=== PATIENT | female | born 1955 | race Caucasian/White ===

== ENCOUNTER → 2016-04-12 | Outpatient (CLI) | payer MEDICARE ==
[~2016-04-12] MED LIST: ATENOLOL50 M1 PO; ATORVASTATIN CA20 MG PO; EFFEXOR XR150 MG PO; GABAPENTIN100 M1 PO; HYDROCHLOROTHIA25 M1 PO; HYDROCODONE-APA1 TA1 PO; HYDROXYCHLOROQ200 M1 PO; LASIX 40MG. TAB40 MG PO; LEVAQUIN 750 M750 MG PO; LORTAB 5/500 501 TAB PO; LYRICA75 MG PO; MOBIC15 MG PO; ORABASE 20% MM; PERCOCET 5/3251 EACH PO; PLAQUENIL200 MG PO; PREDNISONE 10MG10 MG PO; PROTONIX 40MG T40 MG PO; TAMIFLU 75MG CA75 MG PO; TRAMADOL 50MG T1 PAK PO
[2016-04-12 12:00] LABS: LYMPH # 1.3 K/mm3 (0.7-4.5); LYMPH % 18.3 % (10-50.0)
[2016-04-12 13:35] LABS: BILIRUBIN, INDIRECT 0.19 mg/dL (0-0.9)
[2016-04-12 13:37] LABS: GFR (ESTIMATED) 102 ML/MIN (59-)
== END ==
LOC: LAB 11:46
PROVIDERS: Internal Medicine
DX: M06.09 Rheumatoid arthritis without rheumatoid factor, multiple sites (principal); Z79.01 Long term (current) use of anticoagulants; Z51.81 Encounter for therapeutic drug level monitoring

== ENCOUNTER → 2016-09-01 | Outpatient (CLI) | payer MEDICARE ==
[2016-09-01 09:06] LABS: LYMPH # 1.4 K/mm3 (0.7-4.5); LYMPH % 32.4 % (10-50.0)
[2016-09-01 09:23] LABS: HEMOGLOBIN 11.2 g/dL (12.2-16.2)
[2016-09-01 10:29] LABS: BUN 7 mg/dL (7-18)
[2016-09-01 10:30] LABS: GFR (ESTIMATED) 85 ML/MIN (59-)
== END ==
LOC: LAB 08:31
PROVIDERS: Nurse Practitioner Women's Health
DX: M06.09 Rheumatoid arthritis without rheumatoid factor, multiple sites (principal); M79.7 Fibromyalgia; F41.9 Anxiety disorder, unspecified; M85.80 Other specified disorders of bone density and structure, unspecified site; Z79.899 Other long term (current) drug therapy

== ENCOUNTER → 2017-01-03 | Outpatient (CLI) | payer MEDICARE ==
[~2017-01-03] MED LIST changes: +AMBIEN 5MG TAB5 MG PO; +XANAX 0.5MG TA0.5 MG PO; +XELJANZ XR11 MG PO
[2017-01-03 11:43] LABS: HEMOGLOBIN 11.5 g/dL (12.2-16.2); LYMPH % 18.4 % (10-50.0)
[2017-01-03 15:37] LABS: BUN 13 mg/dL (7-18)
[2017-01-03 16:02] LABS: GFR (ESTIMATED) 102 ML/MIN (59-)
== END ==
LOC: LAB 12-22 11:39
PROVIDERS: Nurse Practitioner Women's Health
DX: M06.09 Rheumatoid arthritis without rheumatoid factor, multiple sites (principal); M79.7 Fibromyalgia; M85.80 Other specified disorders of bone density and structure, unspecified site; F41.9 Anxiety disorder, unspecified; Z79.899 Other long term (current) drug therapy

== ENCOUNTER 2017-01-12 17:43 | Emergency (ER) | payer MEDICARE ==
[~2017-01-12] VITALS: Ht 160 cm; Wt 113.4 kg
[~2017-01-12 17:43] MED LIST changes: -AMBIEN 5MG TAB5 MG PO; -XANAX 0.5MG TA0.5 MG PO; -XELJANZ XR11 MG PO
[2017-01-12] MEDS ORDERED: XELJANZ XR11 MG PO (18:08)
[2017-01-12] MEDS ORDERED: AMBIEN 5MG TAB5 MG PO (18:08)
[2017-01-12] MEDS ORDERED: XANAX 0.5MG TA0.5 MG PO (18:08)
--- NOTE | 2017-01-12 18:44 | Urgent Treatment Center Report ---
History of Present Issue Date/Time Seen by Provider 01/12/171809 Visit Reason Pt arrived:Walked Presenting Problem:PT STATES SHE STEPPED DOWN ON THE STEP AT HOME AND FELT A POP IN HER LEFT FOOT. PT HAS FX THIS FOOT ABOUT 1 YEAR AGO. PT ARRIVED WITH A WALKING BOOT ON HER FOOT. 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 Location if Accident: Onset of symptoms date/time:/ or onset unknown for:MEDICAL HX UNKNOWN Have you (or family members/close friends) recently traveled outside the [place]? N If Yes, where/when: Have you had exposure to infectious disease within the past month? TB? Other? Specify: c/o left foot pain, primarily 5th metatarsal. Stepped "wrong" off a step at home today and felt "a pop". Immediate pain since. hx of fracture to "4th or 5th metatarsal" last year. Still had walking boot at home and "that is the only way I was able to improve this pain". Little to no improvement with tylenol. Denies ankle or leg pain. "just right here" as pt points to left 5th metatarsal. Denies N/T. Source patient Exam Limitations no limitations ALLERGIES Coded Allergies: Penicillins (07/11/16) aspirin (07/11/16) codeine (07/11/16) cyclobenzaprine (From FLEXERIL) (07/11/16) pentazocine (From TALWIN) (07/11/16) Uncoded Allergies: DARVOCET (Mild, 07/23/12) Home Medications Reported Medications Prednisone (Prednisone 10MG) 10 MG PO DAILY ATORVASTATIN CALCIUM (ATORVASTATIN 20MG) 20 MG PO QHS Furosemide (Lasix 40MG) 40 MG PO DAILYP PRN FLUID Atenolol 50 MG PO #30 Tofacitinib Citrate (Xeljanz XR) 11 MG PO DAILY Alprazolam (Xanax 0.5MG) 0.5 MG PO BID Zolpidem Tartrate (Ambien 5MG) 5 MG PO QHS History Medical History General CAD? No Angina: No CT: Yes Hypertension? Yes Hyperlipidemia? Yes CHF? No DVT? No PE? No COPD? No Asthma? Yes Anemia? No GERD? No Gastric ulcers? Yes GI Bleed? Yes Hernia? Yes Thyroid Problems? No Hypothyroidism? No CVA? No Seizures? No Diabetes? No UTI? No Stones? No BPH? No GB Disease: Yes Nephritic Syndrome? No Asplenia? No Hepatitis? No Sickle Cell Disease? No Arthritis? No Migraines? No Cataracts? No Glaucoma? No MRSA? No HIV? No TB? No Anxiety? No Depression? No Cancer? Yes Site: UTERINE Immunization HX DT/Tetanus 1-4 YRS Flu REFUSES Pneumonia REFUSES Surgical Hx Previous Surgery?Y HYSTERECTOMY GALBLADDER GASTRIC BYPASS ULCER TKR ON LEFT BILAT CARPAL TUNNEL R KNEE RECTAL SURGERY LEFT KNEE BILATERAL CATERACTS Family History Family HX Diabetes Yes CAD Yes Hypertension Yes Hyperlipidemia Yes Cancer Yes TB Yes Social History Smoking Hx Smoker: Never Smoker Tobacco: No Alcohol Alcohol: No Review of Systems All Other Systems Reviewed and Negative Musculoskeletal see HPI Skin denies change in color, denies lesions, denies lumps Psychiatric/Neurological see HPI Physical Exam Vital Signs Vital Signs Date Time Temp Pulse Resp B/P Pulse O2 O2 Flow FiO2 Ox Delivery Rate 01/12 1851 98.0 84 20 152/84 97 01/12 180 98.0 84 20 152/84 97 General Appearance normal appearance, no apparent distress, wearing walking boot on left foot Respiratory Status No: respiratory distress. Cardiovascular no peripheral edema Peripheral Pulses Pulses normal Yes (DP/PT) Back gait abnormality (limp favoring left) Extremities normal range of motion (left ankle), normal inspection (left foot), limited range of motion (left 4th and 5th digits), tenderness mid left 5th metatarsal Neurologic alert, no motor/sensory deficits, oriented x 3 Skin intact, normal color, warm/dry Medical Decision Making LABS/Meds/Orders Pt receiving controlled substance in ED? No Results/Orders Orders Procedure Date/time Status FOOT-LT-3 VIEWS 01/12 1809 Active XRAY/CT/US XRAY/CT/US XRAY foot (left) XR interpretation by discussed w/radiologist (Dr. Macdonald) Xray Results concern for malunion of old 5th metatarsal fracture with widening due to new injury today. Suggest treating as fracture. 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 report visit to [facility] and xray. Reinjured fracture left 5th metatarsal. Need follow up appointment. Let them know you were previously treated in [place] at [facility] but are needing something closer to home. Patient Instructions DI for Foot Fracture, How To Perform RICE (Rest, Ice, Compress, Elevate), How to Use a Walking Boot Additional Instructions * walking boot any time up * Rest * ice 15-20 mins 3-4 times a day * Elevate as discussed as much as possible to help reduce swelling and therefore , pain * Ibuprofen or NSAID of choice every 6 hours as needed for pain and inflammation. If you need something more, you can take tylenol every 4 hours as needed as long as your primary care provider has told you it is ok to take both. Discharge Counseling Counseled pt/family regarding diagnosis, test results, medications/RX, home care, follow up needs at [phone]
--- NOTE | 2017-01-12 18:44 | Urgent Treatment Center Report ---
History of Present Issue Date/Time Seen by Provider 01/12/171809 Visit Reason Pt arrived:Walked Presenting Problem:PT STATES SHE STEPPED DOWN ON THE STEP AT HOME AND FELT A POP IN HER LEFT FOOT. PT HAS FX THIS FOOT ABOUT 1 YEAR AGO. PT ARRIVED WITH A WALKING BOOT ON HER FOOT. 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 Location if Accident: Onset of symptoms date/time:/ or onset unknown for:MEDICAL HX UNKNOWN Have you (or family members/close friends) recently traveled outside the [place]? N If Yes, where/when: Have you had exposure to infectious disease within the past month? TB? Other? Specify: c/o left foot pain, primarily 5th metatarsal. Stepped "wrong" off a step at home today and felt "a pop". Immediate pain since. hx of fracture to "4th or 5th metatarsal" last year. Still had walking boot at home and "that is the only way I was able to improve this pain". Little to no improvement with tylenol. Denies ankle or leg pain. "just right here" as pt points to left 5th metatarsal. Denies N/T. Source patient Exam Limitations no limitations ALLERGIES Coded Allergies: Penicillins (07/11/16) aspirin (07/11/16) codeine (07/11/16) cyclobenzaprine (From FLEXERIL) (07/11/16) pentazocine (From TALWIN) (07/11/16) Uncoded Allergies: DARVOCET (Mild, 07/23/12) Home Medications Reported Medications Prednisone (Prednisone 10MG) 10 MG PO DAILY ATORVASTATIN CALCIUM (ATORVASTATIN 20MG) 20 MG PO QHS Furosemide (Lasix 40MG) 40 MG PO DAILYP PRN FLUID Atenolol 50 MG PO #30 Tofacitinib Citrate (Xeljanz XR) 11 MG PO DAILY Alprazolam (Xanax 0.5MG) 0.5 MG PO BID Zolpidem Tartrate (Ambien 5MG) 5 MG PO QHS History Medical History General CAD? No Angina: No CA: Yes Hypertension? Yes Hyperlipidemia? Yes CHF? No DVT? No PE? No COPD? No Asthma? Yes Anemia? No GERD? No Gastric ulcers? Yes GI Bleed? Yes Hernia? Yes Thyroid Problems? No Hypothyroidism? No CVA? No Seizures? No Diabetes? No UTI? No Stones? No BPH? No GB Disease: Yes Nephritic Syndrome? No Asplenia? No Hepatitis? No Sickle Cell Disease? No Arthritis? No Migraines? No Cataracts? No Glaucoma? No MRSA? No HIV? No TB? No Anxiety? No Depression? No Cancer? Yes Site: UTERINE Immunization HX DT/Tetanus 1-4 YRS Flu REFUSES Pneumonia REFUSES Surgical Hx Previous Surgery?Y HYSTERECTOMY GALBLADDER GASTRIC BYPASS ULCER TKR ON LEFT BILAT CARPAL TUNNEL R KNEE RECTAL SURGERY LEFT KNEE BILATERAL CATERACTS Family History Family HX Diabetes Yes CAD Yes Hypertension Yes Hyperlipidemia Yes Cancer Yes TB Yes Social History Smoking Hx Smoker: Never Smoker Tobacco: No Alcohol Alcohol: No Review of Systems All Other Systems Reviewed and Negative Musculoskeletal see HPI Skin denies change in color, denies lesions, denies lumps Psychiatric/Neurological see HPI Physical Exam Vital Signs Vital Signs Date Time Temp Pulse Resp B/P Pulse O2 O2 Flow FiO2 Ox Delivery Rate 01/12 1851 98.0 84 20 152/84 97 01/12 180 98.0 84 20 152/84 97 General Appearance normal appearance, no apparent distress, wearing walking boot on left foot Respiratory Status No: respiratory distress. Cardiovascular no peripheral edema Peripheral Pulses Pulses normal Yes (DP/PT) Back gait abnormality (limp favoring left) Extremities normal range of motion (left ankle), normal inspection (left foot), limited range of motion (left 4th and 5th digits), tenderness mid left 5th metatarsal Neurologic alert, no motor/sensory deficits, oriented x 3 Skin intact, normal color, warm/dry Medical Decision Making LABS/Meds/Orders Pt receiving controlled substance in ED? No Results/Orders Orders Procedure Date/time Status FOOT-LT-3 VIEWS 01/12 1809 Active XRAY/CT/US XRAY/CT/US XRAY foot (left) XR interpretation by discussed w/radiologist (Dr. Macdonald) Xray Results concern for malunion of old 5th metatarsal fracture with widening due to new injury today. Suggest treating as fracture. 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 report [facility] and xray. Reinjured fracture left 5th metatarsal. Need follow up appointment. Let them know you were previously treated in [place] at [facility] but are needing something closer to home. Patient Instructions DI for Foot Fracture, How To Perform RICE (Rest, Ice, Compress, Elevate), How to Use a Walking Boot Additional Instructions * walking boot any time up * Rest * ice 15-20 mins 3-4 times a day * Elevate as discussed as much as possible to help reduce swelling and therefore , pain * Ibuprofen or NSAID of choice every 6 hours as needed for pain and inflammation. If you need something more, you can take tylenol every 4 hours as needed as long as your primary care provider has told you it is ok to take both. Discharge Counseling Counseled pt/family regarding diagnosis, test results, medications/RX, home care, follow up needs at [phone]
[2017-01-12 18:51] VITALS: BP 152/84
--- NOTE | 2017-01-13 21:35 | RADIOLOGY REPORT PS360 ---
FOOT-LT-3 VIEWS HISTORY: INJURY ON STEP PTAstep off porch sudden onset, left lateral foot pain. Patient Age: 61 years: Female Ordering Physician: YOSHI SHER APRN TECHNIQUE: 3 views left foot COMPARISON :August 2015 left foot 3 views FINDINGS . Incomplete healing and partial nonunion of a previous noted subtle fracture at the proximal fifth metatarsal metatarsal. . I believe primarily viewing old features but I understand the patient now focally tender here after a new injury. The fracture line is more evident today. Although this may reflect sclerosis at the margins of this nonunion I questioned that re injury here may yield a a potential refracture through this region. Question hairline fracture line continuing medial from this point transversing the proximal fifth metatarsal.. Soft tissue swelling is most evident along the plantar lateral aspect of foot in this region. The other metatarsals seem to be intact. The toes intact. The tarsals appear intact. 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 Majority the findings here appear old .- However I understand his pain here recurred & with suggestion of slight widening at the old fracture line,. Also questionable subtle hairline fracture line extending medial from this point transversing proximal fifth metatarsal on the oblique view.. With history & New onset of pain following injury here,, question/ suspect possible refracture through this old area of nonunion. Orthopedic follow-up required
--- OUTSIDE RECORDS SUMMARY | 2017-01-20 16:11 | External Medical Summary Rpt | CCD ---
Author Author , MAL RESENDEZ Address Unknown Phone [email or web address] Care Team Providers Care Defense Travel Administrator Name Role Phone Jensen Johnson MD, Unavailable Unavailable Jensen Johnson MD Purpose Continuity of Care Document - 07-23-2012 through 2016 Problems Code Diagnosis DOS Provider Status [id number] Asthma [facility] [address] [facility] Allergies, Adverse Reactions, Alerts Type Allergy to substance Drug Allergy Propensity to adverse reactions to drug Adverse Reaction to Substance Substance Reaction Severity DARVOCET Unknown Mild PCN (penicillin) Unknown Mild Aspirin Unknown Mild Codeine Unknown Mild Cyclobenzaprine Unknown Mild Pentazocine Unknown Mild Medications Na ND Rx Da Fi Fi Am Da Di Ph RX Ph St me C No te ll ll ou ys ag ar # ys at rm s nt no ma ic us Or Da si cy ia de te s n re d EF 00 04 1 No FE 00 -2 XO 80 9- Lo R 83 20 ng XR 30 13 er 3 75 Ac ti MG ve CA PS UL E ON 00 04 1 No DA 64 -2 NS 16 9- Lo ET 08 20 ng RO 02 13 er N 5 HC Ac L ti 4 ve MG /2 ML AL ME 51 04 0 No TO 07 -2 OR 90 9- Lo OL 25 20 ng OL 52 13 er 0 TA Ac RT ti RA ve TE 25 MG TA B LE 25 04 0 No VO 02 -2 FL 10 8- Lo OX 13 20 ng AC 28 13 er IN 3 Ac 75 ti 0 ve MG /1 50 ML -D 5W Po 00 04 2 No ta 24 -2 ss 50 8- Lo iu 05 20 ng m 80 13 er Ch 1 lo Ac ri ti de ve 20 ME Q Ta bl e Sa 63 04 1 No li 80 -2 ne 70 8- Lo 10 20 ng Fl 07 13 er us 5 h Ac 10 ti ML ve Sy ri ng e Po 00 04 0 No ta 24 -2 ss 50 8- Lo iu 05 20 ng m 80 13 er Ch 1 lo Ac ri ti de ve 20 ME Q Ta bl e Po 00 04 2 No ta 24 -2 ss 50 8- Lo iu 05 20 ng m 80 13 er Ch 1 lo Ac ri ti de ve 20 ME Q Ta bl e Sa 63 04 1 No li 80 -2 ne 70 8- Lo 10 20 ng Fl 07 13 er us 5 h Ac 10 ti ML ve Sy ri ng e Po 00 04 0 No ta 24 -2 ss 50 8- Lo iu 05 20 ng m 80 13 er Ch 1 lo Ac ri ti de ve 20 ME Q Ta bl e PO 00 04 1 No TA 40 -2 SS 99 8- Lo IU 25 20 ng M 73 13 er CL 9 Ac 20 ti ve ME Q- 0. 45 % NA CL LO 00 04 1 No VE 07 -2 NO 50 8- Lo X 62 20 ng 40 04 13 er 1 MG Ac /0 ti .4 ve ML SY RI NG E HY [address] 30 -2 OX 40 8- Lo YC 29 20 ng HL 60 13 er OR 1 OQ Ac UI ti NE ve 20 0 MG TA B Po 00 04 2 No ta 24 -2 ss 50 8- Lo iu 05 20 ng m 80 13 er Ch 1 lo Ac ri ti de ve 20 ME Q Ta bl e OR 00 04 2 No ED 05 -2 NI 40 8- Lo SO 01 20 ng NE 72 13 er 0 10 Ac ti MG ve TA BL ET Sa 63 04 1 No li 80 -2 ne 70 8- Lo 10 20 ng Fl 07 13 er us 5 h Ac 10 ti ML ve Sy ri ng e MA 00 04 0 No PA 90 -2 P 41 8- Lo 32 98 20 ng 5 26 13 er MG 1 Ac TA ti BL ve ET Po 00 04 0 No ta 24 -2 ss 50 8- Lo iu 05 20 ng m 80 13 er Ch 1 lo Ac ri ti de ve 20 ME Q Ta bl e IP 00 04 1 No RA 48 -2 T- 70 8- Lo AL 20 20 ng BU 10 13 er T 1 0. Ac 5- ti 3( ve 2. 5) MG /3 ML 00 04 2 No AI 12 -2 FE 10 8- Lo NE 63 20 ng SI 81 13 er N 0 DM Ac ti SY ve RU P Vital Signs 08-08-2012 08:00 Name Value Interpretat Reference Comment ion Range Body 98.4 [degF] Temperature BP 92 mm[Hg] Diastolic BP Systolic 165 mm[Hg] Heart 86 /min Rate/Pulse Respiratory 18 /min Rate 08-08-2012 04:00 Name Value Interpretat Reference Comment ion Range Body 99.1 [degF] Temperature BP 96 mm[Hg] Diastolic BP Systolic 165 mm[Hg] Heart 80 /min Rate/Pulse O2% 95 % Respiratory 18 /min Rate 08-06-2012 13:30 Name Value Interpretat Reference Comment ion Range Height 160.02 cm Weight 113.173 kg Measured 08-06-2012 10:24 Name Value Interpretat Reference Comment ion Range Body 101.7 Temperature [degF] BP 62 mm[Hg] Diastolic BP Systolic 140 mm[Hg] Heart 88 /min Rate/Pulse O2% 91 % Respiratory 24 /min Rate Weight 0 [oz_av] Measured 07-23-2012 14:49 Name Value Interpretat Reference Comment ion Range BP 79 mm[Hg] Diastolic BP Systolic 123 mm[Hg] Heart 86 /min Rate/Pulse O2% 100 % Respiratory 20 /min Rate 07-23-2012 14:40 Name Value Interpretat Reference Comment ion Range Body 98.1 [degF] Temperature BP 79 mm[Hg] Diastolic BP Systolic 123 mm[Hg] Heart 86 /min Rate/Pulse O2% 100 % Respiratory 20 /min Rate Results Labs Lab Lab Date Result Refere Interp Status Commen Order Detail nces retati t Range on BASIC METABOLIC PANEL (08-07-2012 06:03) Glucose 99 74-106 complet 013 mg/dL ed Bld-mCn 06:03 c BUN 4 mg/dL 7-18 complet Bld-mCn 013 ed c 06:03 Creat 0.7 0.6-1.0 complet SerPl-m 013 mg/dL ed Cnc 06:03 ESTIMAT 158 50-200 complet ED 013 ML/MIN ed CREATIN 06:03 INE CLEARAN CE GFR 86 59- complet (ESTIMA 013 ML/MIN ed WALTER) 06:03 Sodium 137 136-145 complet SerPl-s 013 mmoL/L ed Cnc 06:03 Potassi 3.5 3.5-5.1 complet um 013 mmoL/L ed SerPl-s 06:03 Cnc Chlorid 103 98-107 complet e 013 mmoL/L ed SerPl-s 06:03 Cnc CO2 28 21.0-32 complet SerPl-s 013 mmoL/L .0 ed Cnc 06:03 Calcium 8.2 8.5-10. complet 013 mg/dL 1 ed SerPl-m 06:03 Cnc CBC with AUTO DIFF (08-07-2012 06:03) WBC # 08-07-2 3.8 4.8-10. complet Bld 013 K/MM3 8 ed Auto 06:03 RBC # 3.75 4.2-5.4 complet Bld 013 M/mm3 ed Auto 06:03 Hgb 11.9 12.2-16 complet Bld-mCn 013 g/dL .2 ed c 06:03 Hct Fr 34.9 % 37.0-47 complet Bld 013 .0 ed 06:03 MCV RBC 93.1 fl 82.2-97 complet 013 .8 ed 06:03 MCH RBC 31.7 pg 27-31.2 complet Qn 013 ed Auto 06:03 MEAN 34.1 31.8-35 complet CORPUSC 013 g/dl .4 ed ULAR 06:03 HGB CONC RDW RBC 13.3 % 11.5-17 complet Auto 013 .5 ed 06:03 Platele 190 142-424 complet t Bld 013 K/mm3 ed Ql 06:03 Manual MEAN 7.5 fl 7.4-10. complet PLATELE 013 4 ed T 06:03 VOLUME Granulo 70.8 % 37.0-80 complet cytes 013 .0 ed Fr Bld 06:03 Auto LYMPH % 21.1 % 10-50.0 complet 013 ed 06:03 Monocyt 7.1 % 1.7-9.3 complet es Fr 013 ed Bld 06:03 Auto Eosinop 0.8 % 0.1-12. complet hil Fr 013 0 ed Bld 06:03 Auto Basophi 04-29-2 0.2 % 0.1-2.0 complet ls Fr 013 ed Bld 06:03 Auto Granulo 08-07-2 2.7 1.8-7.8 complet cytes # 013 K/mm3 ed Bld 06:03 Auto Lymphoc 08-07-2 0.8 0.7-4.5 complet ytes Fr 013 K/mm3 ed Bld 06:03 Auto Monocyt 08-07-2 0.3 0.1-1.0 complet es # 013 K/mm3 ed Bld 06:03 Auto Eosinop 08-07-2 0.0 0.0-0.4 complet hil # 013 K/mm3 ed Bld 06:03 Auto Basophi 08-07-2 0.0 0-0.2 complet ls # 013 K/MM3 ed Bld 06:03 Auto COMPREHENSIVE METABOLIC PANEL (08-06-2012 10:50) Glucose 119 74-106 complet 013 mg/dL ed Bld-mCn 10:50 c BUN 7 mg/dL 7-18 complet Bld-mCn 013 ed c 10:50 Creat 2 0.8 0.6-1.0 complet SerPl-m 013 mg/dL ed Cnc 10:50 ESTIMAT 128 50-200 complet ED 013 ML/MIN ed CREATIN 10:50 INE CLEARAN CE GFR 74 59- complet (ESTIMA 013 ML/MIN ed WALTER) 10:50 Sodium 138 136-145 complet SerPl-s 013 mmoL/L ed Cnc 10:50 Potassi 2.9 3.5-5.1 Low complet um 013 mmoL/L alert ed SerPl-s 10:50 Cnc Chlorid 101 98-107 complet e 013 mmoL/L ed SerPl-s 10:50 Cnc CO2 30 21.0-32 complet SerPl-s 013 mmoL/L .0 ed Cnc 10:50 Calcium 8.1 8.5-10. complet 013 mg/dL 1 ed SerPl-m 10:50 Cnc Prot 6.0 6.4-8.2 complet SerPl-m 013 gm/dL ed Cnc 10:50 Albumin 04-28-2 3.1 3.4-5.0 complet 013 gm/dL ed SerPl-m 10:50 Cnc Globuli 08-06-2 2.9 1.3-3.2 complet n 013 gm/dL ed Ser-mCn 10:50 c Albumin 08-06-2 1.1 UNK 1.1-1.8 complet /Glob 013 ed SerPl-m 10:50 Rto Bilirub 08-06-2 0.5 0.2-1.0 complet 013 mg/dL ed SerPl-m 10:50 Cnc AST 08-06-2 21 U/L 15-37 complet SerPl-c 013 ed Cnc 10:50 ALT 08-06-2 40 U/L 30-65 complet SerPl-c 013 ed Cnc 10:50 ALP 08-06-2 132 U/L 50-136 complet SerPl-c 013 ed Cnc 10:50 CBC with AUTO DIFF (08-06-2012 10:50) WBC # 08-06-2 5.2 4.8-10. complet Bld 013 K/MM3 8 ed Auto 10:50 RBC # 08-06-2 3.99 4.2-5.4 complet Bld 013 M/mm3 ed Auto 10:50 Hgb 08-06-2 12.3 12.2-16 complet Bld-mCn 013 g/dL .2 ed c 10:50 Hct Fr 08-06-2 37.0 % 37.0-47 complet Bld 013 .0 ed 10:50 MCV RBC 08-06-2 92.8 fl 82.2-97 complet 013 .8 ed 10:50 MCH RBC 08-06-2 30.9 pg 27-31.2 complet Qn 013 ed Auto 10:50 MEAN 08-06-2 33.2 31.8-35 complet CORPUSC 013 g/dl .4 ed ULAR 10:50 HGB CONC RDW RBC 08-06-2 13.4 % 11.5-17 complet Auto 013 .5 ed 10:50 Platele 08-06-2 224 142-424 complet t Bld 013 K/mm3 ed Ql 10:50 Manual MEAN 28-2 7.2 fl 7.4-10. complet PLATELE 013 4 ed T 10:50 VOLUME Granulo 08-06-2 81.9 % 37.0-80 complet cytes 013 .0 ed Fr Bld 10:50 Auto LYMPH % 04-28-2 12.0 % 10-50.0 complet 013 ed 10:50 Monocyt 04-28-2 5.5 % 1.7-9.3 complet es Fr 013 ed Bld 10:50 Auto Eosinop 04-28-2 0.3 % 0.1-12. complet hil Fr 013 0 ed Bld 10:50 Auto Basophi 04-28-2 0.3 % 0.1-2.0 complet ls Fr 013 ed Bld 10:50 Auto Granulo 04-28-2 4.3 1.8-7.8 complet cytes # 013 K/mm3 ed Bld 10:50 Auto Lymphoc 04-28-2 0.6 0.7-4.5 complet ytes Fr 013 K/mm3 ed Bld 10:50 Auto Monocyt 04-28-2 0.3 0.1-1.0 complet es # 013 K/mm3 ed Bld 10:50 Auto Eosinop 04-28-2 0.0 0.0-0.4 complet hil # 013 K/mm3 ed Bld 10:50 Auto Basophi 04-28-2 0.0 0-0.2 complet ls # 013 K/MM3 ed Bld 10:50 Auto MYCOPLASMA IGM (RAPID) (08-06-2012 10:50) MYCOPLA 28-2 NON-MOIZ NONREAC complet SMA IGM 013 CTIVE TIVE ed 10:50 (RAPID) Encounters Encounter Start End Date Code Location Performer Type Date Inpatient ROSALVA Johnson MD (IN) 3 10:41 3 08:00 [facility] Emergency STEFFANIE Downing (ER) 3 14:47 3 14:50 [facility] Mariano Moise
--- OUTSIDE RECORDS SUMMARY | 2017-01-20 16:11 | External Medical Summary Rpt | CCD ---
Author Author , MAL RESENDEZ Address Unknown Phone [email or web address] Care Team Providers Care Dye Weigher Name Role Phone Jensen Johnson MD, Unavailable Unavailable Jensen Johnson MD Purpose Continuity of Care Document - 07-23-2012 through 2016 Problems Code Diagnosis DOS Provider Status [id number] Asthma [facility] [address] [facility] Allergies, Adverse Reactions, Alerts Type Allergy to [...] 51 04 0 No TO 07 -2 AL 90 9- Lo OL 25 20 ng [...] ve 20 ME Q Ta bl e AL 00 04 2 No ED 05 -2 [...] Johnson MD (IN) 3 10:41 3 08:00 [facility] Emergency STEFFANIE Downing (ER) 3 14:47 3 14:50 [facility] Mariano Moise
--- OUTSIDE RECORDS SUMMARY | 2017-01-20 16:11 | External Medical Summary Rpt | CCD ---
Author Author , MAL Organization MAL Address Unknown Phone [email or web address] [email or web address] Immunization Name Date Rout CVX Reac Dose Comm Prov Is Faci e tion ent ider Refu lity Give sed n Infl 01-0 Intr 140 0.5 Hist KHAF No RITE uenz 2-20 amus mL oric RAMANDEEP AID0 a, 17 cula al AYMA [id number] P-Fr r Info N ee rmat ion - Sour ce Unsp ecif ied
--- OUTSIDE RECORDS SUMMARY | 2017-01-20 16:11 | External Medical Summary Rpt | CCD ---
Author Author , MAL Organization MAL Address Unknown Phone [email or web address] Immunization Name Date Rout CVX Reac Dose Comm Prov Is Faci e tion ent ider Refu lity Give sed n Infl 01-0 Intr 140 0.5 Hist KHAF No RITE uenz 2-20 amus mL oric RAMANDEEP AID0 a, 17 cula al AYMA [id number] P-Fr r Info N ee rmat ion - Sour ce Unsp ecif ied
--- OUTSIDE RECORDS SUMMARY | 2017-01-20 16:11 | External Medical Summary Rpt | CCD ---
Author Author [employer]ent Organization [employer] Address Unknown Phone Unavailable Purpose Continuity of Care Document - through 2016
== END 2017-01-12 18:52 | disposition home or self-care (01) ==
LOC: UTC 17:43
DX: S92.355P Nondisplaced fracture of fifth metatarsal bone, left foot, subsequent encounter for fracture with malunion (principal); Z88.0 Allergy status to penicillin; Z88.6 Allergy status to analgesic agent; I10 Essential (primary) hypertension; J45.909 Unspecified asthma, uncomplicated; W22.8XXA Striking against or struck by other objects, initial encounter; Y92.019 Unspecified place in single-family (private) house as the place of occurrence of the external cause

== ENCOUNTER → 2017-03-01 | Outpatient (CLI) | payer MEDICARE ==
[~2017-03-01] MED LIST changes: +AMBIEN 5MG TAB5 MG PO; +GABAPENTIN300 M1; +LOVENOX 4040 MG/0.1 SC; +PHENERGAN12.5 M3 PO; +XANAX 0.5MG TA0.5 MG PO; +XELJANZ XR11 MG PO
--- NOTE | 2017-03-01 11:46 | RADIOLOGY REPORT PS360 ---
CHEST(2 VIEWS-NOT PORTABLE) HISTORY: HTN, ORDERING PHYSICIAN: NEREIDA MANZO DPM PATIENT AGE: 61 years COMPARISON: 07/24/2015 FINDINGS: The cardiomediastinal silhouette and pulmonary vascularity are within normal limits. The lungs are clear without infiltrates, suspicious nodules, or pleural effusions. No acute bony abnormalities. Mild degenerative changes thoracic spine Surgical clips are present in the epigastric region IMPRESSION: No change with no acute finding
[2017-03-01 12:09] LABS: HEMOGLOBIN 11.4 g/dL (12.2-16.2); LYMPH # 1.3 K/mm3 (0.7-4.5); LYMPH % 19.4 % (10-50.0)
[2017-03-01 12:45] LABS: BUN 8 mg/dL (7-18); GFR (ESTIMATED) 85 ML/MIN (59-)
== END ==
LOC: LAB 10:57
PROVIDERS: Podiatrist
DX: S92.355P Nondisplaced fracture of fifth metatarsal bone, left foot, subsequent encounter for fracture with malunion (principal); Z01.812 Encounter for preprocedural laboratory examination; Z13.21 Encounter for screening for nutritional disorder